=== PATIENT | female | born 1990 | race Caucasian/White ===

== ENCOUNTER 2023-03-08 08:00 | Outpatient (CLI) | payer MEDICAID ==
[2023-03-09 14:52] LABS: CHLAMYDIA TRACHOMATIS DNA NEGATIVE (NEGATIVE); NEISSERIA GONORRHOEAE DNA NEGATIVE (NEGATIVE); TRICHOMONAS VAGINALIS DNA NEGATIVE (NEGATIVE)
== END 2023-03-08 23:59 | disposition home or self-care (01) ==
LOC: LAB.N 08:00
PROVIDERS: ATTEND Physician Assistant Medical
DX: Z20.2 Contact with and (suspected) exposure to infections with a predominantly sexual mode of transmission (principal)
CPT/HCPCS: 87491; 87591; 87661

== ENCOUNTER 2023-08-13 20:21 | Emergency (ER) | payer MEDICAID | END 2023-08-13 20:25 | disposition left against medical advice (07) | LOC: ED 20:21 | DX: Z53.21 Procedure and treatment not carried out due to patient leaving prior to being seen by health care provider (principal) ==